=== PATIENT | female | born 1960 | race Caucasian/White ===

== ENCOUNTER 2018-10-12 12:08 | Emergency (ER) | payer OTHER ==
[2018-10-12 12:38] LABS: Hematocrit 40 % (35-47); Hemoglobin 14.1 g/dl (12.0-16.0); Mean Corpuscular HGB Conc 35 g/dl (31-36); Mean Corpuscular Hemoglobin 33 pg (27-31); Mean Corpuscular Volume 94 fL (80-97); Platelet Count 254 10^3/ul (150-450); Red Blood Count 4.28 10^6/ul (4.00-5.40); Red Cell Distribution Width 13 % (10.5-15); White Blood Count 5.7 10^3/ul (3.5-10.8)
--- NOTE | 2018-10-12 12:54 | ED ---
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 She noted pain in her calf a couple of days ago but this seemed to resolve. She woke this morning with return in worsening of pain and a physical lump in her lower calf area that was tender to touch. Denies swelling otherwise, fever, chest pain, shortness of breath, increased heart rate, weakness or fatigue. She also denies numbness or tingling in her lower extremity. She sustained a stable distal fibular fracture 7 weeks ago and has been wearing a cam boot since. She's been following Dr. Kidd who reports she is not healing as quickly as anticipated however they are still waiting to see if she needs surgery or not. She was advised to remain in this boot for another 4 weeks and follow-up with Dr. Kidd to reevaluate fracture at that time. She is here today for evaluation and treatment of her new found DVT. Denies h/o bleeding, CA, smoking, CVA, recent surgery or other trauma. - History of Current Complaint Chief Complaint: EDExtremityLower Stated Complaint: CONFIRMED DVT / LEFT CALF Time Seen by Provider: 10/12/18 12:15 Hx Obtained From: Patient, Family/Wax Pumper - Pain Intensity: 2 - Allergies/Home Medications Allergies/Adverse Reactions: Allergies Allergy/AdvReac Type Severity Reaction Status Date / Time Sulfa (Sulfonamide Allergy Headache Verified 10/12/18 12:14 Antibiotics) PMH/Surg Hx/FS Hx/Imm Hx Previously Healthy: Yes Endocrine/Hematology History: Denies: Hx Anticoagulant Therapy, Hx Blood Disorders Cardiovascular History: Reports: Hx Angina Denies: Hx Pacemaker/ICD GI History: Denies: Hx Gastrointestinal Bleed, Other GI Disorders - hepatic dz History: Denies: Hx Acute Renal Failure, Hx Chronic Renal Failure Musculoskeletal History: Reports: Hx of Fracture(s) - Lt distal fibula fx ( stable - slow healing) Sensory History: Denies: Hx Hearing Aid Psychiatric History: Denies: Hx Panic Disorder - Cancer History Hx Chemotherapy: No Hx Radiation Therapy: No - Surgical History Surgery Procedure, Year, and Place: tonsils Infectious Disease History: No Infectious Disease History: Denies: Traveled Outside the [place] in Last 30 Days - Social History Occupation: Employed Full-time Lives: With Family - Alcohol Use: Occasionally Alcohol Amount: tiw Hx Substance Use: No Substance Use Type: Reports: None Hx Tobacco Use: No Review of Systems Constitutional: Negative Cardiovascular: Negative Respiratory: Negative Positive: no symptoms reported Musculoskeletal: Other - Lt calf soreness - Lt fib fx Skin: Other - lump Neurological: Negative Psychological: Normal All Other Systems Reviewed And Are Negative: Yes Physical Exam Triage Information Reviewed: Yes Vital Signs On Initial Exam: Initial Vitals Temp Pulse Resp BP Pulse Ox 98.2 F 63 14 141/60 100 10/12/18 12:10 10/12/18 12:10 10/12/18 12:10 10/12/18 12:10 10/12/18 12:10 Vital Signs Reviewed: Yes Appearance: Positive: Well-Appearing, No Pain Distress, Well-Nourished Skin: Positive: Warm, Skin Color Reflects Adequate Perfusion, Dry - no erythema , no ecchymosis, no fever to touch over calf area - Lt foot with mild hyperpigmentation that appears to be from low grade/chronic edema of the dorsal foot - no skin breakdown Head/Face: Positive: Normal Head/Face Inspection Eyes: Positive: Normal, EOMI ENT: Positive: Hearing grossly normal. Negative: Nasal drainage Respiratory/Lung Sounds: Positive: Breath Sounds Present Cardiovascular: Positive: Pulses are Symmetrical in both Upper and Lower Extremities, Leg Edema Left - focal area of raised tissue over the Lt inferior posterior calf/achilles region - mild TTP - no bogginess Musculoskeletal: Positive: Strength/ROM Intact - toes and knee, Limited @ - Lt ankle limited d/t fx Neurological: Positive: Normal, Sensory/Motor Intact, Alert, Oriented to Person Place, Time, CN Intact II-III Psychiatric: Positive: Normal Diagnostics - Vital Signs Vital Signs Temp Pulse Resp BP Pulse Ox 10/12/18 12:10 98.2 F 63 14 141/60 100 - Laboratory Lab Results: Lab Results 10/12/18 Range/Units 12:26 WBC 5.7 (3.5-10.8) 10^3/ul RBC 4.28 (4.00-5.40) 10^6/ul Hgb 14.1 (12.0-16.0) g/dl Hct 40 (35-47) % MCV 94 (80-97) fL MCH 33 H (27-31) pg MCHC 35 (31-36) g/dl RDW 13 (10.5-15) % Plt Count 254 (150-450) 10^3/ul MPV 8.0 (7.4-10.4) fL Result Diagrams: 10/12/18 12:26 10/12/18 12:26 Lab Statement: Any lab studies that have been ordered have been reviewed, and results considered in the medical decision making process. Lower Extremity Course/Dx - Course Course Of Treatment: U/S: paired peroneal vein DVT. Labs and hx qualify for anticoagulation. Discussed with ortho (SOULEYMANE Erickson, who confirmed w/ Amanda ) pt may start anticoagulation therapy and f/u w/ PCP. Discussed pros/cons of coumadin with bridge therapy vs. DOAC - pt contacted her insurance company and would like to start xarelto. Reviewed risks of bleeding w/ pt and partner as well as to avoid NSAID's while taking but may take acetaminophen for pain in the interum. - Diagnoses Provider Diagnoses: Left leg DVT Discharge - Sign-Out/Discharge Documenting (check all that apply): Patient Departure - Discharge Plan Condition: Stable Disposition: HOME Prescriptions: Rivaroxaban TAB(*) [Xarelto 15 mg(*)] 15 mg PO BID #42 tab Patient Education Materials: Deep Vein Thrombosis (ED) Referrals: Lolis Esparza MD [Primary Care Provider] - Additional Instructions: Call PCP today to schedule follow-up appointment prior to completing xarleto as you will need additional dosing at a different strength *If you develop chest pain, shortness of breath, fever, increased heart rate, back pain or bloody cough, or abnormal bleeding from nose, vagina, rectum, etc return to the ED - Billing Disposition and Condition Condition: STABLE Disposition: Home
[2018-10-12 12:55] LABS: Activated Partial Thrombo Time 28.4 seconds (26.0-36.3); Albumin 4.6 g/dL (3.2-5.2); Albumin/Globulin Ratio 1.8 (1-3); BUN/Creatinine Ratio 31.5 (8-20); Calcium 10.2 mg/dL (8.6-10.3); EGFR African American 98.4 (>60); EGFR Non-African American 81.3 (>60); Globulin 2.6 g/dL (2-4); INR 0.94 (0.77-1.02); Potassium 4.2 mmol/L (3.5-5.0); Total Bilirubin 0.4 mg/dL (0.2-1.0); Total Protein 7.2 g/dL (6.4-8.9)
[2018-10-12 14:06] VITALS: BP 108/56
== END 2018-10-12 14:05 | disposition home or self-care (01) ==
LOC: ED 12:08
DX: I82.4Z2 Acute embolism and thrombosis of unspecified deep veins of left distal lower extremity (principal); Z88.2 Allergy status to sulfonamides; Z79.01 Long term (current) use of anticoagulants
CPT/HCPCS: 36415; 80053; 85027; 85610; 85730; 99282